=== PATIENT | female | born 1975 | race Two or more races ===

== ENCOUNTER → 2017-04-30 | Outpatient (CLI) | payer OTHER ==
--- NOTE | 2017-04-30 15:06 | RADIOLOGY REPORT (SQ) ---
EXAM DESCRIPTION: U/S NON-OB PELVIS W/O DOP COMPLETED DATE/TIME: 04/30/2017 1:48 pm REASON FOR STUDY: PELVIC PAIN (R10.2) R10.2 PELVIC AND PERINEAL PAIN COMPARISON: None. TECHNIQUE: Dynamic and static grayscale images acquired of the pelvis via transabdominal approach an d recorded on PACS. Additional selected color Doppler and spectral images recorded. LIMITATIONS: None. FINDINGS: UTERUS: Contour normal. No mass. Uterus is 10.5 x 5 x 4 cm in size. ENDOMETRIAL STRIPE: No focal or generalized thickening. No masses. 12 mm in thickness CERVIX: No nabothian cysts. RIGHT OVARY: No abnormal masses. Right ovary 3.3 x 1.9 x 2.3 cm in size RIGHT OVARY DOPPLER: Normal arterial vascular flow without evidence for torsion. LEFT OVARY: No abnormal masses. Left ovary 3.4 x 2.9 x 2.8 cm in size LEFT OVARY DOPPLER: Normal arterial vascular flow without evidence for torsion. FREE FLUID: None noted. OTHER: No other significant finding. IMPRESSION: NORMAL PELVIC ULTRASOUND BY TRANSABDOMINAL TECHNIQUE. TECHNICAL DOCUMENTATION: JOB ID: [id number] [employer]- All Rights Reserved
== END ==
LOC: RAD 12:41
PROVIDERS: ATTEND Family Medicine
DX: R10.2 Pelvic and perineal pain (principal)
CPT/HCPCS: 76856

== ENCOUNTER 2018-07-18 05:23 | Day surgery (SDC) | payer OTHER ==
[2018-07-16 12:12] LABS: HEMATOCRIT 42.4 % (36.0-47.0); HEMOGLOBIN 13.7 g/dL (12.0-15.5); MEAN CORPUSCULAR HEMOGLOBIN 25.8 pg (27.0-33.4); MEAN CORPUSCULAR HGB CONC 32.3 g/dL (32.0-36.0); MEAN CORPUSCULAR VOLUME 80 fl (80-97); PLATELET COUNT 396 10^3/uL (150-450); RED BLOOD COUNT 5.32 10^6/uL (3.72-5.28); RED CELL DISTRIBUTION WIDTH 14.4 % (11.5-14.0); WHITE BLOOD COUNT 5.5 10^3/uL (4.0-10.5)
[2018-07-16 12:19] LABS: APPEARANCE,URINE SLIGHTLY-CLOUDY; BILIRUBIN,URINE NEGATIVE (NEGATIVE); COLOR,URINE STRAW; GLUCOSE, URINE NEGATIVE (NEGATIVE); KETONES,URINE NEGATIVE (NEGATIVE); LEUKOCYTE ESTERASE,URINE SMALL (NEGATIVE); NITRITE,URINE NEGATIVE (NEGATIVE); PROTEIN,URINE NEGATIVE (NEGATIVE); URINE SPECIFIC GRAVITY 1.006; UROBILINOGEN,URINE NEGATIVE mg/dL (<2.0)
[2018-07-16 12:33] LABS: ANION GAP 15 (5-19); BLOOD UREA NITROGEN 7 mg/dL (7-20); CARBON DIOXIDE 27 mmol/L (22-30); CHLORIDE 102 mmol/L (98-107); GLUCOSE 87 mg/dL (75-110); POTASSIUM 4.8 mmol/L (3.6-5.0); SODIUM 144.2 mmol/L (137-145)
--- NOTE | 2018-07-16 13:04 | EKG REPORT ---
SEVERITY:- ABNORMAL ECG - SINUS RHYTHM PROBABLE LEFT ATRIAL ABNORMALITY PROBABLE LEFT VENTRICULAR HYPERTROPHY : Confirmed by: Khanh Parmar MD 16-Jul-2018 13:03:51
[~2018-07-18 05:23] MED LIST: CLINDAMYCIN 600 MG/D5W RTU 600 MG/50 ML RTUPB IV ONE; CLINDAMYCIN 600 MG/D5W RTU 600 MG/50 ML RTUPB IV PRN; LACTATED RINGERS 1000 ML IV PRN; LIDOCAINE 0.5% INJ-PF (5 MG/ML) 50 ML SDV SUBCUT PRN
[2018-07-18] MEDS ORDERED: LIDOCAINE 1% INJ-PF (10 MG/ML) 30 ML SDV ONE (06:46)
[2018-07-18] MEDS ORDERED: LIDOCAINE 2% INJ-PF (20 MG/ML) 10 ML AMPUL ONE (07:00)
[2018-07-18] MEDS ORDERED: ACETAMINOPHEN 1,000 MG/100 ML RTUPB IV ONE (07:01)
[2018-07-18] MEDS ORDERED: MIDAZOLAM 2 MG/2 ML INJ ONE (07:01)
[2018-07-18] MEDS ORDERED: FENTANYL CITRATE INJ/PF 100 MCG/2 ML AMPUL ONE (07:01)
[2018-07-18] MEDS ORDERED: PROPOFOL INJ 200 MG/20 ML VIAL IV ONE (07:01)
[2018-07-18] MEDS ORDERED: MEPERIDINE HCL/PF INJ 25 MG/1 ML DISP.SYRIN IV PRN (07:42)
[2018-07-18] MEDS ORDERED: ONDANSETRON HCL INJ/PF 4 MG/2 ML SDV IV PRN (07:42)
[2018-07-18] MEDS ORDERED: DIPHENHYDRAMINE HCL 50 MG/ML VIAL IV PRN (07:42)
[2018-07-18] MEDS ORDERED: FENTANYL CITRATE INJ/PF 100 MCG/2 ML AMPUL IV PRN ×3 (07:42)
[2018-07-18] MEDS ORDERED: PROMETHAZINE HCL INJ 25 MG/1 ML VIAL IV PRN ×2 (07:42)
--- NOTE | 2018-07-18 08:22 | OPERATIVE REPORT E ---
Operative Report NAME: NOELLE COTA : 1975 AGE: 43Y DATE OF SURGERY: 07/18/2018 ROOM: PREOPERATIVE DIAGNOSIS: Menorrhagia. POSTOPERATIVE DIAGNOSIS: Menorrhagia. OPERATION: Dilatation and curettage, hysteroscopy, NovaSure ablation. SURGEON: DAVIAN EAST M.D. ANESTHESIA: LMAC, paracervical block. COMPLICATIONS: None. FINDINGS: Normal endometrial cavity. No endometrial polyps or fibroids were appreciated. EUA demonstrated no adnexal masses. Uterus was retroverted. Measurements were 5.5 cm length x 3.7 cm width. INDICATIONS FOR PROCEDURE: The patient had profuse profound menorrhagia unresponsive to usual outpatient management. Outpatient biopsy was QNS. Usual risks of bleeding, infection, anesthesia, damage to the organs and tissues discussed and the patient understood. No guarantees or warranties regarding the future of amenorrhea have been made with the patient. PROCEDURE: The patient was taken to the operating room and placed in modified lithotomy position after adequate anesthesia ascertained, prepped and draped in the usual manner for a hysteroscopy. EUA performed. Bladder was left undrained. Uterine measurements were taken. Cervix was dilated to admit an operative hysteroscope. Endometrial biopsy was obtained after hysteroscopy demonstrated orientation and nature of the uterus. The NovaSure device was inserted, deployed, gas confirmation of integrity was performed, and burn was done for approximately 90 seconds. At completion of the procedure rehysteroscopy demonstrated a good thorough burn throughout with good uterine integrity confirmed. At the completion of the procedure the patient was awakened and taken to the recovery room in stable condition. DICTATING PHYSICIAN: DAVIAN EAST M.D. [id number] PHY#: [id number] ID: [id number] JOB#: [id number] ACCT: [id number] cc:DAVIAN EAST M.D. >
[2018-07-18] MEDS ORDERED: OXYCODONE-ACETAMINOPHEN 5-325 MG TABLET PO PRN ×2 (08:33→08:34)
[2018-07-18] MEDS ORDERED: MORPHINE SULFATE 10 MG/ML INJ INJ PRN (08:35)
[2018-07-18] MEDS ORDERED: PROMETHAZINE HCL INJ 25 MG/1 ML VIAL IM PRN (08:36)
[2018-07-18] MEDS ORDERED: OXYCODONE-ACETAMINOPHEN 5-325 MG TABLET ONE (08:55)
[2018-07-18 10:09] VITALS: BP 141/96
[2018-07-18] MEDS ORDERED: IBUPROFEN 800 MG TABLET PO SCH (14:00)
== END 2018-07-18 09:55 | disposition home or self-care (01) ==
LOC: OROUT 05:23
PROVIDERS: ATTEND Specialist
DX: N92.0 Excessive and frequent menstruation with regular cycle (principal); Z72.0 Tobacco use
CPT/HCPCS: 93005; 86900; 86901; 36415; 86850; 85027; 81025; 80048; 81001; 88305 ×2; 93010; 58563; J2250; J3010; J3490 ×2; J2704; J0131; 952